=== PATIENT | female | born 1980 ===

== ENCOUNTER 2022-10-19 20:45 | Emergency (ER) | payer MEDICAID, SELFPAY ==
--- NOTE | ~2022-10-19 | US_ITS ---
EXAMINATION: US VENOUS ULTRASOUND WITH DOPPLER LOWER EXTREMITY, RIGHT CLINICAL INFORMATION: Pain COMPARISON: None available. TECHNIQUE: Ultrasound of the deep veins is performed from the hip to the calf with compression sonography and color and pulse Doppler assessment. Spectral analysis with color-flow imaging is performed. FINDINGS: There is normal venous compression and respiratory variation and augmented flow. The visualized common femoral vein, superficial femoral vein, profunda femoral vein, popliteal vein, and the trifurcation region shows no evidence of deep venous thrombosis. There is no significant popliteal fossa cyst. US/US venous duplex LE RT IMPRESSION: No DVT demonstrated in the right lower extremity.
--- NOTE | ~2022-10-19 | XR_ITS ---
EXAMINATION: XR KNEE, RIGHT CLINICAL INFORMATION: Atraumatic right knee pain. COMPARISON: None available. TECHNIQUE: Four views of the right knee. FINDINGS: Bones and soft tissues are normal. No fracture or joint effusion. Alignment is anatomic. Joint spaces are well maintained. No abnormal soft tissue calcification. XR/XR knee RT 3V IMPRESSION: Unremarkable right knee.
[2022-10-19 20:46] VITALS: BP 135/90; PULSE 100; RESP 18; TEMP 37.1; O2SAT 99; BMI 35.5
--- NOTE | 2022-10-19 21:53 | ED_ITS ---
HPI - General Adult General Chief complaint: Extremity Injury, Lower Stated complaint: right ankle pain Time Seen by Provider: 10/19/22 21:11 Source: patient, RN notes reviewed and bilingual inside sales representative Mode of arrival: ambulatory Limitations: language barrier History of Present Illness HPI narrative: 42-year-old female presents for evaluation of right knee pain. Denies any injury. Pain has been present for the last month. Her pain is to the front and back of right knee The pain radiates down the right lower extremity The patient has a history of hypothyroidism only. She denies any history of blood clots per The patient did fly to [facility] and back in August, about a month ago Related Data Previous Rx's Medication Instructions Recorded naproxen 500 mg tablet 500 mg PO BID PRN pain #20 tabs 10/19/22 Allergies Allergy/AdvReac Type Severity Reaction Status Date / Time No Known Allergies Allergy Verified 10/19/22 20:50 Review of Systems Cardiovascular: Cardiovascular: Denies chest pain and Denies dyspnea Respiratory: Respiratory: Denies cough and Denies dyspnea Gastrointestinal: Gastrointestinal: Denies abdominal pain Musculoskeletal: Musculoskeletal: Reports arthralgias, Denies joint swelling and Denies limited range of motion PMFSH Social History Social History Advance Directives: No Advance Directives Information Provided: No Physical Exam ED Vital Signs: Vital Signs - 24 hr 10/19/22 20:46 Temperature 98.7 F Pulse Rate 100 Respiratory Rate 18 Blood Pressure 135/90 H Pulse Oximetry 99 Oxygen Delivery Method Room Air BMI result Body Mass Index 35.5 Const General: healthy appearing, comfortable, no acute distress, alert and awake Nutritional Appearance: well nourished Orientation/consciousness: patient oriented x3 Skin General skin exam: no rashes or lesions noted and elasticity normal Neuro General: patient oriented x3 Cranial nerves: Yes Bilaterally intact EOM present Cognition (Neuro): normal cognition Extrem Other: Patient has tenderness to the right posterior knee. No significant edema or deformity. She has good range of motion with flexion and extension. Negative Homans sign, no calf tenderness Medical Decision Making Medical Decision Making MDM Narrative: Patient has 1 month of atraumatic right lower extremity pain. There is no significant edema. She did fly to [facility] approximately a month ago rib for the onset of her symptoms. X-ray of the right knee is unremarkable. We will obtain ultrasound of the right lower extremity to rule out DVT given the recent travel Differential Diagnosis Arthritis Knee pain Knee sprain DVT Reis cyst Radiology Impression Discussion of test interpretation with radiology: I have reviewed the radiologist's reading. (Ultrasound negative for DVT) Discharge Plan Discharge Clinical Impression: Acute pain of right knee Patient Disposition: Home, Self-Care Instructions: Knee Pain (ED) Additional Instructions: Your x-ray did not show any evidence of fracture or arthritis. Your ultrasound did not show any evidence of clot or Reis cyst. Take naproxen twice daily for your pain and follow-up with your primary doctor Prescriptions: New naproxen 500 mg tablet 500 mg PO BID PRN (Reason: pain) Qty: 20 0RF
== END 2022-10-19 22:46 | disposition home or self-care (01) ==
PROVIDERS: Emergency Provider Emergency Medicine
DX: M25.561 Pain in right knee (principal); R60.0 Localized edema
CPT/HCPCS: 73562; 93971; 99282; 99284

== ENCOUNTER 2022-12-01 12:05 | Outpatient (REF) | payer MEDICAID, SELFPAY ==
[2022-12-01 13:07] LABS: MANUAL DIFF FLAG NO
[2022-12-01 13:19] LABS: Basophils Percent Auto 0.5 % (0-2); Eosinophils Absolute Auto 0.2 X10*3/uL (0.0-0.4); Eosinophils Percent Auto 2.5 % (0-4); Hematocrit 44.1 % (37.0-47.0); Hemoglobin 14.7 g/dl (12.0-16.0); Imm Gran Abs Auto 0.06 X10*3/uL (0.00-0.03); Imm Gran Pct Auto 0.9 % (0.0-0.4); Lymphocytes Absolute Auto 3.2 X10*3/uL (1.2-4.9); Lymphocytes Percent Auto 48.5 % (20-40); Mean Corpuscular HGB Conc 33.3 g/dl (31.0-35.0); Mean Corpuscular Hemoglobin 30.1 pg (27.0-33.0); Mean Corpuscular Volume 90.4 fL (80.0-98.0); Mean Platelet Volume 9.7 fL (9.4-12.3); Monocytes Absolute Auto 0.5 X10*3/uL (0.1-1.2); Monocytes Percent Auto 6.9 % (2-11); Neutrophils Absolute Auto 2.7 x10*3/uL (2.0-8.3); Neutrophils Percent Auto 40.7 % (45-73); Platelet Count 289 X10*3/uL (160-400); Red Blood Count 4.88 X10*6/uL (4.20-5.50); Red Cell Distribution Width 13.1 % (11.0-16.0); White Blood Count 6.5 X10*3/uL (4.8-10.8)
[2022-12-01 13:38] LABS: Estimated Average Glucose 123 mg/dL; Hemoglobin A1c % 5.9 %
[2022-12-01 14:03] LABS: Erythrocyte Sedimentation Rate 5 MM/HR (0-20)
[2022-12-01 14:10] LABS: Alanine Aminotransferase 118 U/L (0-31); Albumin Level 4.3 g/dL (3.5-5.0); Alkaline Phosphatase 69 U/L (39-117); Anion Gap 12 (12-20); Aspartate Amino Transferase 104 U/L (5-31); Bilirubin Total 0.8 mg/dL (0.0-1.0); Blood Urea Nitrogen 8 mg/dL (9-16); C Reactive Protein 0.31 mg/dL (< or = 0.50); Calcium 9.2 mg/dL (8.4-10.2); Carbon Dioxide 23 mmol/L (22-29); Chloride 107 mmol/L (96-108); Cholesterol 136 mg/dL; Estimated Glomerular Filt Rate > 60; Glucose Random 90 mg/dL (60-115); HDL Cholesterol 44 mg/dL; LDL Cholesterol Calculated 69 mg/dl; Potassium 3.7 mmol/L (3.3-5.1); Sodium 138 mmol/L (135-145); Total Protein 7.6 g/dL (6.5-8.0); Triglycerides 117 mg/dL; Uric Acid 5.5 mg/dL (2.4-5.7)
[2022-12-01 14:13] LABS: Rheumatoid Factor < 13.0 IU/mL (<15.0)
[2022-12-01 14:27] LABS: Free T4 (Free Thyroxine) 0.63 ng/dL (0.71-1.85); Thyroid Stimulating Hormone 16.38 uIU/mL (0.32-4.0)
[2022-12-01 16:41] LABS: CT PCR NOT DETECTED (Not Detect.); NG PCR NOT DETECTED (Not Detect.)
[2022-12-02 02:25] LABS: Syphilis Screen Nonreactive (Nonreactive)
[2022-12-02 03:11] LABS: ~HepC Num1 0.19 S/CO (0.00-0.79); ~Hepatitis C Antibody Nonreactive (Nonreactive)
[2022-12-02 03:12] LABS: HBS Num1 0.33 mIU/mL (0-7.99); HBc Num1 0.12 S/CO (0.00-0.79); HIV AB/AG Nonreactive (Nonreactive); HIV Num 1 0.05 S/CO (0.00-0.99); Hepatitis B Core Antibody Nonreactive (Nonreactive); Hepatitis B Surface Antigen Negative (Negative); ~Hepatitis B Surface Antibody NONREACTIVE (Nonreactive)
[2022-12-04 14:08] LABS: Cyclic Citrullinated Peptide <16 UNITS
[2022-12-06 14:32] LABS: Anti Nuclear Antibody Screen NEGATIVE (NEGATIVE)
[2022-12-08 07:33] LABS: VITAMIN D (1,25 OH) D3 54 pg/mL; Vit D (1,25-Dihydroxy) Total 54 pg/mL (18-72); Vitamin D (1,25 OH) D2 <8 pg/mL
== END 2022-12-01 12:06 | disposition home or self-care (01) ==
LOC: HO.HHCL 12:05
PROVIDERS: Visit Provider Student in an Organized Health Care Education/Training Program
DX: Z00.00 Encounter for general adult medical examination without abnormal findings (principal); Z11.4 Encounter for screening for human immunodeficiency virus [HIV]; M25.561 Pain in right knee; M25.562 Pain in left knee
CPT/HCPCS: 0353U; 80053; 80061; 82652; 83036; 84436; 84439; 84443; 84550; 85025; 85652; 86038; 86140; 86200; 86431; 86704; 86706; 86780; 86803; 87340; 87389

== ENCOUNTER 2023-02-02 09:27 | Outpatient (REF) | payer MEDICAID, SELFPAY ==
--- NOTE | ~2023-02-02 | MM_ITS ---
EXAMINATION: MM SCREENING DIGITAL BREAST TOMOSYNTHESIS, BILATERAL CLINICAL INFORMATION: Screening. Asymptomatic. COMPARISON: Mammography: This is a baseline study. TECHNIQUE: Digital breast tomosynthesis is performed in both the craniocaudal and mediolateral oblique views along with computer-aided detection (CAD). Synthesized 2D images are generated from the tomosynthesis. FINDINGS: There are scattered areas of fibroglandular density (ACR BI-RADS breast composition Category b). There are no significant masses, abnormal calcifications, or other abnormalities. MM/MM tomosynthesis screening BI IMPRESSION: No mammographic evidence of malignancy. ASSESSMENT: BI-RADS BI-RADS 1 - Negative RECOMMENDATION: Routine annual mammography screening. 1 year F/U This examination should not preclude the clinical evaluation of a suspicious palpable abnormality. This patient's information was entered into a reminder system with a target due date for their next mammogram.
== END 2023-02-02 09:28 | disposition home or self-care (01) ==
LOC: HO.MAMMO 09:27
PROVIDERS: PCP Student in an Organized Health Care Education/Training Program; Visit Provider Student in an Organized Health Care Education/Training Program
DX: Z12.31 Encounter for screening mammogram for malignant neoplasm of breast (principal)
CPT/HCPCS: 77063; 77067

== ENCOUNTER → 2023-02-02 09:45 | Outpatient (BNV) | payer MEDICAID, SELFPAY | PROVIDERS: PCP Student in an Organized Health Care Education/Training Program; Visit Provider Radiology Diagnostic Radiology | DX: Z12.31 Encounter for screening mammogram for malignant neoplasm of breast (principal) | CPT/HCPCS: 77063; 77067 ==

== ENCOUNTER 2023-05-06 | Outpatient (REF) | payer MEDICAID, SELFPAY ==
[2023-05-14 03:48] LABS: HPV mRNA E6/E7 rflx Not Detected (Not Detected)
== END 2023-05-06 00:01 ==
LOC: HO.HHCLNP
PROVIDERS: Visit Provider Advanced Practice Midwife
DX: Z12.4 Encounter for screening for malignant neoplasm of cervix (principal); Z11.51 Encounter for screening for human papillomavirus (HPV)
CPT/HCPCS: 87624; 88142

== ENCOUNTER 2023-12-08 19:46 | Outpatient (REF) | payer MEDICAID, SELFPAY | END 2023-12-08 19:47 | disposition home or self-care (01) | LOC: HO.HHCLNP 19:46 | PROVIDERS: Visit Provider Registered Nurse | DX: L03.031 Cellulitis of right toe (principal) | CPT/HCPCS: 87070; 87077; 87186; 87205 ==

== ENCOUNTER 2024-08-29 19:00 | Outpatient (REF) | payer SELFPAY ==
--- OUTSIDE RECORDS SUMMARY | 2024-08-29 19:29 | XMS_ITS | Clinical Summary ---
Author Organization [employer] Address [address] [place] [address] [address] [place] [address] Care Team Providers Care Quality Improvement Engineer Name Role Phone Caroline Dumas MD Primary Care Pro vider Allergies No known active allergies Medications * This document contains information received from the source organization and may not represent a complete record from that organization. lidocaine (Lidoderm) 5 % patch Apply 1 patch topically in the morning. Remove & discard patch within 12 hours or as directed by MD. 30 patch 12/30/19 23 Active levothyroxine (Tirosint) 125 MCG capsuleIndication s:Other specified hypothyroidism TAKE 1 CAPSULE BY MOUTH BEFORE BREAKFAST 90 capsule 08/18/19 24 Active sertraline (Zoloft) 25 MG tabletIndications :PTSD (post-traumatic stress disorder) Take 1 tablet (25 mg) by mouth in the morning. 30 tablet 1 08/29/19 25 2024 Active hydrOXYzine pamoate (Vistaril) 50 MG capsuleIndication s:PTSD (post-traumatic stress disorder) Take 1 capsule (50 mg) by mouth if needed in the morning and at bedtime for anxiety. 30 capsule 1 08/29/19 25 2024 Active cefadroxil (Duricef) 500 MG capsuleIndication s:Paronychia of great toe of right foot Take 1 capsule BID for 5d, take w/ food 10 capsule 08/30/19 25 2024 Active doxycycline (Vibra-Tabs) 100 MG tabletIndications :Paronychia of great toe of right foot Take 1 tablet (100 mg) by mouth 2 times daily for 7 days. Take with food and a full glass of water and do not lie down for at least 30 minutes after. 14 tablet 08/30/19 25 2024 Active hydrOXYzine pamoate (Vistaril) 50 MG capsule Take 1 capsule (50 mg) by mouth every 8 (eight) hours if needed for anxiety. 30 capsule 05/08/20 24 2024 Discontinued(R eorder (will not trigger notification to Pharmacy)) sertraline (Zoloft) 25 MG tabletIndications :PTSD (post-traumatic stress disorder) Take 1 tablet (25 mg) by mouth in the morning. 30 tablet 1 05/23/20 24 2024 Discontinued(R eorder (will not trigger notification to Pharmacy)) Active Problems Problem Noted Date Diagnosed Date Adjustment disorder with mixed anxiety and depre ssed mood 05/08/2024 Elevated LFTs 12/29/2022 Assessment & Plan (12/29/2022 12:44 PM EDT): 11/2022 AST 104,ALT 118 Pt denies excessive ETOH, tylenol nor NSAID use,states only sporadic . Not taking oral contraceptives ( does has IUD ) , denies herbal products Pt w obesity possible from fatty liver -advised pt for weight loss changes -referred to [employer]point [employer] architect already -ordered today chem to be done in 3 weeks -I will call pt w results, if worsen will refer x abd US ,if improving will monitor again in 3 months -advised to avoid excess of tylenol,NSAIDs and avoid ETOH Prediabetes 12/29/2022 Assessment & Plan (12/29/2022 12:49 PM EDT): 11/2022 Hb1AC 5.9 -life style changes advised -referred to sharepoint solutions architect -will repeat hb1AC in 3 mo -if still elevated will discuss about starting metformin -holding for now w elevated LFTs Carpal tunnel syndrome 12/01/2022 Assessment & Plan (12/29/2022 12:30 PM EDT): Pt w bl CTs symptoms w numbness in 1st 3 digits in am + phalen and tinnel test w no atrophy of muscles noted at previous visit Possible mx factorial from uncontrolled hypothyroidism and obesity -gave already written prescription of wrist brace x both hands -advised to wear them every night -pt to get prescription -will monitor at next visit in 3 months if no improvement will refer to hand surgeon Assessment & Plan (12/01/2022 1:46 PM EDT): Pt w bl CTs symptoms w numbness in 1st 3 digits in am + phalen and tinnel test w no atrophy of muscles noted -gave today written prescription of wrist brace x both hands -advised to wear them every night -will monitor at next visit Pain in both knees 12/01/2022 Assessment & Plan (12/29/2022 12:36 PM EDT): Reports having bl knee pain x last 5 months R>L ,denies having any joint swelling,increase skin temp nor erythema -right knee XR 09/2022 : unremarkable -Right LE US 09/2022 : Neg x DVT nor Reis cyst -lidocaine patches daily prn -states this is helping -prescribed today diclofenac topical -advised to try w tylenol prn and if ongoing discomfort meloxicam 1 or up to 2 tab daily for moderate pain ( states not taking tablets to often ) ,advised to try topical meds 11/2022 LISSETTE,antiCCP, RF are neg and ,CPR,ESR,uric acid all wnl -referred to PT -has apt to start tx this week -if at next visit pt w ongoing pain will consider x MRI right knee and ortho referral--advised pt to call here if after completes PT and before next visit if there is no improvement of knee pain so I can do earlier referral for image and orthopedic Assessment & Plan (12/01/2022 1:51 PM EDT): Reports having bl knee pain x last 3 to 4 months R>L ,denies having any joint swelling,increase skin temp nor erythema , went to ER on 10/19/2022 , naproxen 500 mg BID w improvement but now run off and having pain again ,described as intense. Denies other joints affected but having am rigidity in hands bl lasting < 10 min. -right knee XR 09/2022 : unremarkable -Right LE US 09/2022 : Neg x DVT nor Reis cyst -advised to try w tylenol prn and if ongoing discomfort meloxicam 1 or up to 2 tab daily for moderate pain -lidocaine patches -referred to PT today -will do autoimmune panel x am rigidity -if at next visit pt w ongoing pain will consider x MRI right knee and ortho referral Health care maintenance 12/01/2022 Assessment & Plan (12/29/2022 12:52 PM EDT): -per pt had neg Tb test before -pap smear: 2 y ago neg per pt but unsure ---referred already to [facility] to repeat test ,has apt this month -contraception: has IUD -Mirena thinks x last 5 years -will check w J R. If needs to changed or keep for another couple of years. -MM: never-referred already -has apt this mon -vaccines: s/p MMRx2,Covid 18t7-Axsgbqmj dosex1, tdap 11/2022, Hep B not immune- to start series ------ -labs done x annual exam 12/01/2022 to be scanned in system not seen in Epic lab tab 11/2022 immature granulocytes absolute number 0.06 slight elevated ,rest of CBC is wnl -will repeat CBC in 3 mo to monitor Assessment & Plan (12/01/2022 2:17 PM EDT): -per pt had neg Tb test before -pap smear: 2 y ago neg per pt but unsure ---referred today to [facility] Marti to repeat test -contraception: has IUD -Mirena thinks x last 5 years -will check w J R. If needs to changed or keep for another couple of years. -MM: never-referred today -vaccines: s/p MMRx2,Covid 19o6-itygm Bivalent dose, tdap 2011 today tdap -- -PHQ9 2 today-denies depression,reports fatigue likely associated since stopped taking levothyroxine x couple of months-to resume today Class 2 obesity due to exces s calories without serious comorbidity with body mass index (BMI) of 36.0 to 36.9 in adult 12/01/2022 Assessment & Plan (12/29/2022 12:40 PM EDT): Advised pt to improve diet and exercise,discussed healthy life style -lost 4 pounds in last month -prob after resumed levothyroxine -discussed sharepoint solutions architect referral -referred already-gave today info of letter from sharepoint solutions architect for pt to call to schedule apt -monitor weight in 3 mo ,if no important weight loss may discuss w pt about bariatric surgery referral ? Assessment & Plan (12/01/2022 2:18 PM EDT): Advised pt to improve diet and exercise,discussed healthy life style -discussed sharepoint solutions architect referral -referred today Other specified hypothyroidism 07/22/2022 Assessment & Plan (12/29/2022 12:39 PM EDT): Hypothyroidism Now reports to be complaint w medication for the past 3 weeks 12/01/2022 TSH 16.38, total T4 wnl, free T4 low ( 0.63)--at the time of labs was off meds x 3 months -advised to continue levothyroxine daily -will repeat TFT in next 3 weeks -ordered today --I will call pt w lab results Assessment & Plan (12/01/2022 1:47 PM EDT): Hypothyroidism -not taking med x last 3 months after taking 4 years , x no particular reason. -advised to resume today levothyroxine -will do TFT x baseline but will no change in dose given off x 3 months of meds -will repeat TFT in next 6 weeks -will order labs at next apt Encounters * This document contains information received from the source organization and may not represent a complete record from that organization. Date Type Department Care Team Description 08/29/2024 2:20 PM EDT Office Visit [facility] [address] [place] [phone] Vidya Stuart ANP Paronychia of great toe of right foot (Primary Dx); Dietary counseling; Exercise counseling 08/14/2024 Telephone [facility] [address] [place] [phone] Caroline Dumas MD Nurse Triage 06/26/2024 Telephone [facility] [address] [place] [phone] Caroline Dumas MD Nurse Triage from Last 3 Months Immunizations Name Administration Dates Next Due Influenza injectable quadriv alent IIV4 with preservative 04/04/2018,06/11/2017,09/14/2016,2014 Influenza, IIV3, injectable 02/08/2014, 2 MMR 02/16/2005,01/01/2003 Moderna Covid-19 Vaccine 12+ 11/30/2020,11/03/19 21 Pfizer Covid-19 Vaccine 12+ Bivalent 12/01/2022 Tdap 12/01/2022,12/03/2011 Family History Medical History Relation Name Comments DM2 Mother Relation Name Status Comments Mother Social History Tobacco Use Types Packs/Day Years Used Date Smoking Tobacco: Never Smokeless Tobacco: Never Tobacco Cessation:Counseling Given: Not Answered Alcohol Use Standard Drinks/Week Comments Not Currently 0 (1 standard drink = 0.6 oz pur e alcohol) Depression Answer Date Recorded Patient Health Questionnaire-9 Score 7 05/08/2024 Patient Health Questionnaire-9 Score 7 05/08/2024 Last PHQ-9: Questionnaire Data Not on file 1 07/09/2023 Housing Stability Answer Date Recorded What is your housing situation today? I have tunde dev 03/29/[address] you li ve. Do you have problems with any of the following? None of the above 03/29/2023 Food Insecurity Answer Date Recorded Within the past 12 months, y ou worried that your food would run out before you got money to buy more: Never True 03/29/2023 Within the past 12 months,th e food you bought just didn't last and you didn't have enough money to get more: Never True 10/2022 Transportation Answer Date Recorded In the past 12 months, has l ack of transportation kept you from medical appts, meetings, work or from getting things needed for daily living? No 03/29/2023 Utilities Answer Date Recorded In the past 12 months, has t he electric, gas, oil or water company threatened to shut off services in your home? No 03/29/2023 Depression Answer Date Recorded Patient Health Questionnaire-2 Score 2 05/08/2024 Comments No Sex and Gender Information Value Date Recorded Sex Assigned at Female 08/17/2022 1:40 PM EDT Legal Sex Female 10:38 AM EDT Gender Identity Female 03/23/2022 10:38 AM EDT Sexual Orientation Straight 03/23/2022 10 :38 AM EDT Last Filed Vital Signs Vital Sign Reading Time Taken Comments Blood Pressure 122/82 08/29/2024 2:07 PM EDT Pulse 84 08/29/2024 2:07 PM EDT Temperature 36.5 ??C (97.7 ??F) 08/29/2024 2:07 PM ED T Respiratory Rate 17 08/29/2024 2:07 PM EDT Oxygen Saturation 99% 08/29/2024 2:07 PM EDT Inhaled Oxygen Concentration - - Weight 76.7 kg (169 lb 3.2 oz) 08/29/2024 2:07 P M EDT Height 152.4 cm (5') 12/08/2023 4:55 PM EDT Body Mass Index 33.04 12/08/2023 4:55 PM EDT Plan of Treatment Health Maintenance Due Date Last Done Comments Alcohol/Substance Use Screening 1993 Family Planning (PISQ) 02/15/1996 Hepatitis B Vaccines (1 of 3 - 19+ 3-dose series) 02/15/2000 Diabetes: Hemoglobin A1C 07/29/2022 07/29/2021 SDOH Screening 11/24/2023 11/23/2022 COVID-19 Vaccine ( season) 2024 12/01/2022, 11/30/2020, 11/02/2020 Influenza Vaccine (#1) 2024 8, 06/11/2017, 09/14/2016, Additional history exists Mammogram 02/02/2025 02/02/2023 Depression Screening 05/08/2025 05/08/2024, 05/08/20 24 Tobacco Screening 08/29/2025 08/29/2024 Pap Smear 05/06/2026 05/06/2023 Lipid Panel 07/29/2026 07/29/2021 Cervical Cancer Screening 05/06/2028 HPV/Cotest 05/06/2028 05/06/2023 Zoster Vaccines (1 of 2) 2031 DTaP/Tdap/Td Vaccines (3 - Td or Tdap) 12/01/2032 12/01/2022, 12/03/2011 RSV Patients and Patients Aged 60 years or older (1 - 1-dose 75+ series) 02/15/2056 HIV Screening Completed 07/29/2021 Hepatitis C Screening Completed 07/29/2021 HIB Vaccines Aged Out No longer eligi ble based on patient's age to complete this topic HPV Vaccines Aged Out No longer eligi ble based on patient's age to complete this topic Hepatitis A Vaccines Aged Out No long er eligible based on patient's age to complete this topic IPV Vaccines Aged Out No longer eligi ble based on patient's age to complete this topic Meningococcal Vaccine Aged Out No abigail jessica eligible based on patient's age to complete this topic Pneumococcal Vaccine: Pediatrics (0 to 5 Years) and At-Risk Patients (6 to 49) Years) Aged Out No longer eligible based on patient's age to complete this topic RSV under 20 months Aged Out No longe r eligible based on patient's age to complete this topic Rotavirus Vaccines Aged Out No longer eligible based on patient's age to complete this topic Procedures Procedure Name Priority Date/Time Associated Diagnosis Comments HPV MRNA E6/E7 REFLEX TO HPV 16, 18/45 Routine 05/06/2023 11:08 AM EST PAP SMEAR Routine 05/06/2023 11:08 AM EST Cervical cancer screening BI MAMMOGRAM SCREENING TOMOSYNTHESIS BILATERAL Routine 02/02/2023 10:00 AM EDT ZZZ HISTORICAL HEPATITIS C AB W/REFL TO HCV RNA, QN, PCR Routine 07/29/2021 8:56 AM EST HIV 1/2 ANTIGEN/ANTIBODY, FOURTH GENERATION W/RFL Routine 07/29/2021 8:56 AM EST HEMOGLOBIN A1C Routine 07/29/2021 8:56 AM EST LIPID PANEL, STANDARD Routine 07/29/2021 8:56 AM EST from Last 3 Months or Most Recently Relevant to Health Maintenance Results * HPV mRNA E6/E7 w/Reflex to HPV Genotypes 16, 18/45 (05/06/2023 11:08 AM EST) HPV nRNA E6/E7 Not Detected Not Detected [facility] Comment:Methodology: Transcr iption-Mediated AmplificationThis assay detects E6/E7 viral messenger RNA (mRNA) from 14high-risk HPV types (16,18,31,33,35,39,45,51,52,56,58,59,66,68).Cervical sources are required for HPV testing.If a vaginal source from a patient who has had atotal hysterectomy with removal of cervix wassubmitted, please contact the testing laboratoryfor alternative testing options.For additional information, please refer tohttp://education.[employer]/faq/VXV346c8(This link if provided for information/educational purposes only.)THIS TEST WAS PERFORMED AT:[facility] [place] [phone] LEE MD HPV mRNA E6/E7 [facility] HPV 16 RNA [facility] HPV 18/45 RNA [facility] 05/06/2023 11:0 8 AM EST 05/07/2023 9:35 AM EST Jai Church [facility] CYTOLOGY ORDERABLES F inal Result [facility] [address] [place] [phone] * Pap Smear (05/06/2023 11:08 AM EST) Swab Cervix uteri structure / Unknown 05/06/2023 11:08 AM EST 05/07/2023 9:35 AM EST Narrative [facility] - 05/18/2023 1:23 PM EST ----- ------- Name: Mirian De La Fuente ?Age/Sex: 43/F ? : 1980 Unit#: [id number] ?? Attend Dr: ?Re05/06/23 ?Status: PRE REF ? Location: HO.LNP ?Disch: ? ----- ------- SPEC : [id number] ?RECD: 05/07/23 ? STATUS: ??SOUT ? REQ NUM: [id number] ? OMARI: 05/06/23-1107 ? SUBM DR: JAI CHURCH CNM ? ENTERED: ??05/07/23-1200 ?SP TYPE: Pap Smr ?OTHR DR: ? ORDERED: ??Pap Smear ? Interpretation ?? Satisfactory for evaluation. ?? No endocervical cells seen. ?? Moderate inflammation. ?? Negative for intraepithelial lesion or malignancy. ?HPV mRNA E6/E7: ?NOT DETECTED ? This assay detects E6/E7 viral messenger RNA (mRNA) from 14 high-risk HPV types (16, 18, ?? 31, 33, 35, 39, 45, 51, 52, 56, 58, 59, 66, 68) ?? HPV testing performed by [facility], [place], [place]. ??See reference laboratory ?? portion of the EMR for entire report. ?Clinical Information LMP: Unknown date Previous PAP test: Unknown date/findings ? Material Received ?? ThinPrep-Cervical ----- ------- Signed (signature on file) BARBARA Lezama (ASCP) 05/18/23 1323 ? ----- ------- ? END OF REPORT ? us Jai Church CNM LAB CYTOLOGY ORDERABLES F inal Result [facility] [address] [place] [phone] * BI Mammogram Screening Tomosynthesis Bilateral (02/02/2023 10:00 AM EDT) Anatomical Region Laterality Modality Breast Bilateral Mammography 02/02/2023 10:0 0 AM EDT Narrative 02/18/2023 11:19 AM EDT ? [facility] ? [address] ?[place] [phone] ? Mammography Report ? Signed ? Patient: Osmin,Mirian ?MR#: [id number] ?? 41 ? : 1980 ?Acct:[id number] ? Age/Sex: 42 / F ?ADM Date: 02/02/23 ? Loc: HO.MAMMO ? Attending Dr: Caroline Mcneil MD ? Ordering Physician: Caroline Dumas MD ?Re ?? sults: 1Negative ? Date of Service: 02/02/23 ?Follow Up: 1 Year From Orig ?? inal Mammogram ? Procedure(s): MM tomosynthesis screening BI ?? Accession Number(s): [id number] ? cc: Caroline Dumas MD ? EXAMINATION: ?? MM SCREENING DIGITAL BREAST TOMOSYNTHESIS, BILATERAL ? CLINICAL INFORMATION: ? Screening. Asymptomatic. ? COMPARISON: ?? Mammography: This is a baseline study. ? TECHNIQUE: ?? Digital breast tomosynthesis is performed in both the craniocaudal and ?? mediolateral oblique views along with computer-aided detection (CAD). ?? Synthesized 2D images are generated from the tomosynthesis. ? FINDINGS: ?? There are scattered areas of fibroglandular density (ACR BI-RADS breast ?? composition Category b). ? There are no significant masses, abnormal calcifications, or other ?? abnormalities. ? MM/MM tomosynthesis screening BI ?? IMPRESSION: ?? No mammographic evidence of malignancy. ? ASSESSMENT: ? BI-RADS BI-RADS 1 - Negative ? RECOMMENDATION: ?? Routine annual mammography screening. ? 1 year F/U ? This examination should not preclude the clinical evaluation of a ?? suspicious palpable abnormality. ? This patient's information was entered into a reminder system with a ?? target due date for their next mammogram. ? Dictated By: ?Svetlana Abarca MD ? Signed By: ?<Electronically signed by Svetlana Abarca MD in OV> ? 02/18/23 1115 ? DD/ 1000 ? TD/TT: ? Helpdesk Manager: ? Procedure Note Hasmukh, Image - 02/18/2023 [facility] [address] [place] [address] [place] [address] Mammography Report Signed Patient: Alan Solorio#: [id number] 41 : 1980Acct:[id number] Age/Sex: 42 / FADM Date: 02/02/23 Loc: [facility] Attending Dr: Caroline Mcneil MD Ordering Physician: Caroline Dumas sults: 1Negative Date of Service: 02/02/23Follow Up: 1 Year From Orig inal Mammogram Procedure(s): MM tomosynthesis screening BI Accession Number(s): [id number] cc: Caroline Dumas MD EXAMINATION: MM SCREENING DIGITAL BREAST TOMOSYNTHESIS, BILATERAL CLINICAL INFORMATION: Screening. Asymptomatic. COMPARISON: Mammography: This is a baseline study. TECHNIQUE: Digital breast tomosynthesis is performed in both the craniocaudal and mediolateral oblique views along with computer-aided detection (CAD). Synthesized 2D images are generated from the tomosynthesis. FINDINGS: There are scattered areas of fibroglandular density (ACR BI-RADS breast composition Category b). There are no significant masses, abnormal calcifications, or other abnormalities. MM/MM tomosynthesis screening BI IMPRESSION: No mammographic evidence of malignancy. ASSESSMENT: BI-RADS BI-RADS 1 - Negative RECOMMENDATION: Routine annual mammography screening. 1 year F/U This examination should not preclude the clinical evaluation of a suspicious palpable abnormality. This patient's information was entered into a reminder system with a target due date for their next mammogram. Dictated By: Svetlana Abarca MD Signed By: <Electronically signed by Svetlana Abarca MD in OV> 02/18/23 1115 DD/ 1000 TD/TT: Helpdesk Manager: Caroline Mcneil MD IMG BI PROCEDURES Final Result * HEPATITIS C AB W/REFL TO HCV RNA, QN, PCR (07/29/2021 8:56 AM EST) HEPATITIS C ANTIBODY NON-REACT SALOMON NON-REACT SALOMON [facility] INDEX 0.12 <1.00 [facility] Comment: ?? HCV antibody was non-reactive. There is no laboratory ?? evidence of HCV infection. ?? In most cases, no further action is required. However, if recent HCV exposure is suspected, a test for HCV RNA (test code 83270) is suggested. ?? For additional information please refer to http://education.[employer]/faq/RLF71u2 (This link is being provided for informational/ educational purposes only.) ?? 07/29/2021 8:56 AM EST us Divina Asif MD HISTORICAL/NON ORDERABLE LABS Final Result Performing Organization Address [facility] de Phone Number [facility] [address] [place] [address], * HIV 1/2 ANTIGEN/ANTIBODY,FOURTH GENERATION W/RFL (07/29/2021 8:56 AM EST) HIV-1/2 ANTIGEN AND ANTIBODIES, 4TH GENERATION W/ REFLEX NON-REACT SALOMON NON-REACT SALOMON [facility] Comment: HIV-1 antigen and HIV-1/HIV-2 antibodies were not detected. There is no laboratory evidence of HIV infection. ?? PLEASE NOTE: This information has been disclosed to you from records whose confidentiality may be protected by state law. ??If your state requires such protection, then the state law prohibits you from making any further disclosure of the information without the specific written consent of the person to whom it pertains, or as otherwise permitted by law. A general authorization for the release of medical or other information is NOT sufficient for this purpose. ? For additional information please refer to http://education.[employer]/faq/UYC258 (This link is being provided for informational/ educational purposes only.) ? The performance of this assay has not been clinically validated in patients less than 2 years old. ?? 07/29/2021 8:56 AM EST Divina Asif MD LAB BLOOD ORDERABLES Final Re sult Performing Organization Address [facility] Phone Number [facility] [address] [place] [address], * (ABNORMAL) HEMOGLOBIN A1c (07/29/2021 8:56 AM EST) Hemoglobin A1c 5.9(H) <5.7 % of total Hgb [facility] Comment: For someone without known diabetes, a hemoglobin ?? A1c value between 5.7% and 6.4% is consistent with prediabetes and should be confirmed with a ?? follow-up test. ?? For someone with known diabetes, a value <7% indicates that their diabetes is well controlled. A1c targets should be individualized based on duration of diabetes, age, comorbid conditions, and other considerations. ?? This assay result is consistent with an increased risk of diabetes. ?? Currently, no consensus exists regarding use of hemoglobin A1c for diagnosis of diabetes for children. ?? 07/29/2021 8:56 AM EST us Divina Asif MD LAB BLOOD ORDERABLES Final Re sult Performing Organization Address [facility] de Phone Number [facility] [address] * LIPID PANEL, STANDARD (07/29/2021 8:56 AM EST) Chol/HDLC Ratio 2.8 <5.0 (calc) [facility] Cholesterol, Total 119 <200 mg/dL [facility] HDL Cholesterol 43 > OR = 40 mg/dL [facility] LDL Cholesterol 59 mg/dL (calc) [facility] Comment: Reference range: <100 ?? Desirable range <100 mg/dL for primary prevention; ?? <70 mg/dL for patients with CHD or diabetic patients ?? with > or = 2 CHD risk factors. ?? LDL-C is now calculated using the Sacha-Brock ?? calculation, which is a validated novel method providing ?? better accuracy than the Friedewald equation in the ?? estimation of LDL-C. ?? Sacha ENNIS et al. JESSICA. 2013;310(19): 9828-1281 ?? (http://education.[employer]/faq/STH519) Non-HDL Cholesterol 76 <130 mg/dL (calc) [facility] Comment: For patients with diabetes plus 1 major ASCVD risk ?? factor, treating to a non-HDL-C goal of <100 mg/dL ?? (LDL-C of <70 mg/dL) is considered a therapeutic ?? option. Triglycerides 86 <150 mg/dL FOUND [facility]COUNT INCLUDES THE [facility] 07/29/2021 8:56 AM EST us Divina Asif MD LAB BLOOD ORDERABLES Final Re sult Performing Organization Address [facility] Co de Phone Number [facility] [address] from Last 3 Months or Most Recently Relevant to Health Maintenance Insurance [employer] PPO Care Teams Quality Improvement Engineer Relationship Specialty Start Date End Date Caroline Dumas MD [address] [place] [id number] PCP - General Internal Medicine 12/01/22
--- OUTSIDE RECORDS SUMMARY | 2024-08-29 19:30 | XMS_ITS | Encounter Summary ---
Author Organization [employer] Address [address] [place] [address] 7 [place] [address] Care Team Providers Care Show Host Name Role Phone Caroline Dumas MD Primary Care Pro vider Reason for Referral * Consultation (Urgent) - Pending Review Specialty Diagnoses / Procedures Referred By Chuy parekh Referred To Contact Podiatry Diagnoses Paronychia of great toe of right foot Vidya Stuart ANP [address] [place] [address] Phone: tel: fax: Referral ID Status Reason Start Date Expiration Date Visits Requested Visits Authorized [id number] Pending Review Specialty Services Required 08/29/2024 08/29/2025 1 1 Reason for Visit * Reason Comments Nail Problem Allergies Encounter Details Date Type Department Care Team (Late st Contact Info) Description 08/29/2024 2:20 PM EDT Office Visit [facility] [address] [place] [phone] Vidya Stuart ANP [address] [place] [phone] Paronychia of great toe of right foot (Primary Dx); Dietary counseling; Exercise counseling Social History Tobacco Use Types Packs/Day Years Used Date Smoking Tobacco: Never Smokeless Tobacco: Never Alcohol Use Standard Drinks/Week Comments Not Currently 0 (1 standard drink = 0.6 oz pur e alcohol) Depression Answer Date Recorded Patient Health Questionnaire-9 Score 7 05/08/2024 Patient Health Questionnaire-9 Score 7 05/08/2024 Last PHQ-9: Questionnaire Data Not on file 1 07/09/2023 Housing Stability Answer Date Recorded What is your housing situation today? I have tunde méndez 03/29/[address] you li [...] Orientation Straight 03/23/2022 10 :38 AM EDT documented as of this encounter Last Filed Vital Signs Vital Sign Reading [...] oz) 08/29/2024 2:07 P M EDT Height - - Body Mass Index 33.04 12/08/2023 4:55 PM EDT documented in this encounter Progress Notes * REG Mon - 08/29/2024 2:20 PM EDT Subjective Patient ID: Mirian Solorio is a 44 y.o. female who presents for Nail Problem and Allergies. HPI PMH preDM, CTS, hypothyroid, elevated LFTs Per triage Reports having an ingrown nail on great big toe. Per pt having redness, pus around cuticle and under nail. No fever. Pt states having severe pain. Pt states was seen for this in past and was supposed to be referred to podiatry but due to insurance unable to follow up. Pain and swelling present in R great toe for 3 weeks. Dropped some boxed on toe 4 weeks ago. Has been doing some warm soaks. Non-smoker Douglas NGUYEN provided Bengali interpretation. Review of Systems Constitutional: Negative for chills and fever. HENT: Negative for sore throat. Respiratory: Negative for cough and shortness of breath. Cardiovascular: Negative for chest pain. Gastrointestinal: Negative for constipation and diarrhea. Endocrine: Negative for polydipsia, polyphagia and polyuria. Genitourinary: Negative for dysuria. Skin: Positive for color change. Negative for rash. +swelling, erythema at medial nail fold R great toe Objective BP 122/82 (BP Location: Left arm, Patient Position: Sitting, BP Cuff Size: Adult) Pulse84 Temp 97.7 ??F (36.5 ??C) (Temporal) Resp 17 Wt 169 lb 3.2 oz (76.7 kg) SpO2 99% BMI 33.04 kg/m?? Physical Exam Constitutional: Appearance: Normal appearance. Cardiovascular: Rate and Rhythm: Normal rate. Musculoskeletal: Right lower leg: No edema. Left lower leg: No edema. Comments: Medial nail fold great toe on R foot erythematous, swollen, with purulent discharge spontaneously draining and expressed from near cuticle. Skin: General: Skin is warm and dry. Neurological: Mental Status: She is alert. Assessment/Plan Diagnoses and all orders for this visit: Paronychia of great toe of right foot Draining spontaneously, recommend warm soaks TID, urgent referral to podiatry, cefadroxil plus doxy. Call us if not improving or if worsening sx. - Wound culture; Future - Referral to Podiatry; Future - cefadroxil (Duricef) 500 MG capsule; Take 1 capsule BID for 5d, take w/ food - doxycycline (Vibra-Tabs) 100 MG tablet; Take 1 tablet (100 mg) by mouth 2 times daily for 7 days.Take with food and a full glass of water and do not lie down for at least 30 minutes after. Dietary counseling Exercise counseling documented in this encounter Plan of Treatment Scheduled Orders Name Type Priority Associated Diagnoses Orde r Schedule Wound culture Microbiology Routine Paronychia of great toe of right foot Expected: 08/29/2024 (Approximate), Expires: 08/29/2025 Scheduled Referrals Name Type Priority Associated Diagnoses Orde r Schedule Referral to Podiatry Outpatient Referral Urgent Paronychia of great toe of right foot Expected: 08/29/2024 (Approximate), Expires: 08/29/2025 documented as of this encounter Visit Diagnoses Diagnosis Paronychia of great toe of right foot- Primary Dietary counseling Dietary surveillance and counseling Exercise counseling documented in this encounter Additional Health Concerns Assessment Noted Time PHQ-9 Depression Total Score: 7 05/08/20 24 10:19 AM EST documented as of this encounter Care Teams Show Host Relationship Specialty Start Date End Date Caroline Dumas MD [address] [place] [id number] PCP - General Internal Medicine 12/01/22 documented as of this encounter
== END 2024-08-29 19:01 | disposition home or self-care (01) ==
LOC: HO.HHCLNP 19:00
PROVIDERS: Visit Provider Nurse Practitioner Primary Care
DX: L03.031 Cellulitis of right toe (principal)
CPT/HCPCS: 87070; 87077; 87186; 87205

== ENCOUNTER 2025-01-06 19:35 | Emergency (ER) | payer SELFPAY ==
[2025-01-06 19:53] VITALS: BP 124/89; PULSE 80; RESP 18; TEMP 36.7; O2SAT 99; BMI 32.3
--- NOTE | 2025-01-06 19:58 | ED.SKABFB ---
HPI - Skin/Abscess/Foreign Bdy General Chief complaint: Extremity Injury, Lower Stated complaint: right great toe pain Related Data Previous Rx's ?Medication ?Instructions ?Recorded naproxen 500 mg tablet 500 mg PO BID PRN pain #20 tabs 10/19/22 Allergies Allergy/AdvReac Type Severity Reaction Status Date / Time No Known Allergies Allergy Verified 01/06/25 19:56 [facility] Social History Social History (System 05/07/23 @ 11:11 by Monica Bowers) Advance Directives: No Advance Directives Information Provided: No Physical Exam Vital Signs: Vital Signs: Last Vital Signs Temp 98.0 F 01/06/25 19:53 Pulse 80 01/06/25 19:53 Resp 18 01/06/25 19:53 BP 124/89 01/06/25 19:53 Pulse Ox 99 01/06/25 19:53 O2 Del Method Room Air 01/06/25 19:53 BMI result Body Mass Index 32.3 Course Course Course Narrative: Zora Hartley GROOMING ASSISTANT 01/06 1957 THis is a rapid medical exam. Defer additional HPI, ROS and PE to primary provider. Is a 44-year-old female with a history of ingrown toenails who presents the ER with right great toe swelling and pain. On exam patient appears to have ingrown toenail. She will likely need excision of the toenail. VSS Discharge Plan Discharge Clinical Impression: Ingrowing toenail of right foot Patient Disposition: Left W/O Completing Treatment Prescriptions: No Action naproxen 500 mg tablet 500 mg PO BID PRN (Reason: pain) Qty: 20 0RF Discharge Date/Time: 01/07/25 00:56
== END 2025-01-07 00:56 | disposition left against medical advice (07) ==
PROVIDERS: Emergency Provider Emergency Medicine
DX: L60.0 Ingrowing nail (principal); M79.674 Pain in right toe(s)
CPT/HCPCS: 99281

== ENCOUNTER 2025-01-08 16:36 | Emergency (ER) | payer OTHER, SELFPAY ==
[2025-01-08 17:11] VITALS: BP 141/70; PULSE 83; RESP 20; TEMP 36.8; O2SAT 98; BMI 28.4
--- NOTE | 2025-01-08 17:12 | ED_ITS ---
HPI - General Adult General Chief complaint: Wound/Laceration Stated complaint: left toe pain Time Seen by Provider: 01/08/25 21:09 History of Present Illness ED Provider: Nelia RABAGO narrative: The patient is a 44-year-old woman who says she has been having problems with an ingrown toenail on her right great toe for over a month. She says that she saw her primary care doctor several weeks ago and was prescribed antibiotics. There was a plan to refer the patient to Podiatry. However the patient has not yet seen a strategic accounts manager. The pain has been getting worse and she came to the emergency room. No fever, sweats, chills. She reports some yellow-green dis charge. Related Data Previous Rx's ?Medication ?Instructions ?Recorded naproxen 500 mg tablet 500 mg PO BID PRN pain #20 t abs 10/19/22 Allergies Allergy/AdvReac Type Severity Reaction Status Date / Time No Known Allergies Allergy Verified 01/08/25 17:11 Review of Systems Review of Systems: Yes all other systems are reviewed and are negative [facility] Social History Social History (System 05/07/23 @ 11:11 by Monica Bowers) Advance Directives: No Advance Directives Information Provided: No Physical Exam ED Vital Signs: Vital Signs - 24 hr 01/08/25 17:11 01/08/25 21:20 01/08/25 22:43 Temperature 98.3 F 98.1 F 98.1 F Pulse Rate 83 75 75 Respiratory Rate 20 17 17 Blood Pressure 141/70 H 129/84 129/84 Pulse Oximetry 98 98 98 Oxygen Delivery Method Room Air Room Air Room Air BMI result Body Mass Index 28.4 Const General: cooperative, healthy appearing, comfortable and no acute distress Orientation/consciousness: patient oriented x3 [facility] Other: The face is symmetrical. Mucous membranes moist. Eyes Other: Pupils are round equal, conjunctivae are clear, extraocular movements intact Neck Neck: Yes normal visual inspection and Yes full ROM Resp Effort & Inspection: normal respiratory effort Auscultation: clear to auscultation bilaterally Cardio Rate: regular rate Rhythm: regular rhythm Heart sounds: S1 normal heart sound present and S2 normal heart sound present Skin Other: There is erythema and soft tissue swelling to the medial aspect of the paronychial skin of the right great toe. The patient is very tender in his area. Neuro General: patient oriented x3, gait normal, tone normal, moves all extremities, no focal motor deficits and CN's II-XI intact bilaterally Extrem Other: The patient has swelling and erythema to the paronychial skin on the medial aspect of the right great toe. The toenail seems to be ingrown on this side. There was no lymphangitic streaking of the erythema. The erythema is confined to the medial aspect of the distal toe at the paronychial skin. Course Course Course Narrative: This is a Rapid Medical Examination (RME) performed by Gladys Stanton PA-C in triage. Full HPI, ROS, assessment and treatment plan per primary provider in the Main ED. Hx: 44 yo F here for eval of painful ingrown toe nail to right great toe. draining red/yellow discharge. Plan: ingrown toenail removal ?I&D Medications Administered Discontinued Medications Generic Name Dose Route Start Last Admin Trade Name Jerryq PRN Reason Stop Dose Admin Bacitracin 1 appl 01/08/25 22:05 01/08/25 22:51 Bacitracin Oint 0.9 Gm Packet TOPICAL 01/08/25 22:06 1 appl ONCE ONE Administration Protocol Lidocaine HCl 10 ml 01/08/25 21:18 01/08/25 21:21 Lidocaine Hcl 1 % Mpf 5 Ml Vial INFILTRATI 01/08/25 21:19 10 ml ONCE ONE Administration Procedures Procedure Narrative Procedure Narrative: Procedure: Partial nail removal to relieve an ingrown toenail consent: Verbal consent from the patient was given prior to start of the procedure location: Right great toe anesthesia: 1% plain lidocaine using a 30 gauge needle injected at the base of the toe as a digital block, total volume of lidocaine 10 mL preparation: The toe was prepped with Betadine procedure details: After anesthesia was ultimately achieved using a digital block I used a scissors to undermine the medial aspect of the right great toenail from the nail bed. I carried this undermining procedure down to the base of the toenail in the region of the nail bed matrix. I then used scissors to cut the nail longitudinally and remove the medial portion of the nail, thereby relieving the ingrown toenail against the paronychial skin on the medial side of the toe. the longitudinal cut was taken down to the proximal end of the nail in the region of the nail bed matrix. Complications: None, the patient tolerated the procedure well. Bacitracin and a dressing were applied subsequent to the procedure. The patient was given a postop shoe. Medical Decision Making Medical Decision Making MDM Narrative: The patient has an obvious ingrown toenail on the medial aspect of the right great toe. Using a [place] seaman officer I explained that I recommended a partial removal of the toenail and that this would be done using a digital block to the toe. The patient understood and consented to the procedure. I then prepped the skin of the toe with Betadine. I used 1% lidocaine and a 30 gauge needle to apply a digital block to the toe, injecting lidocaine primarily at the base of the toe, mostly on the medial side. It took some time for the digital block take affect and I used a total of 10 mL of 1% lidocaine administered over several injections before the toe was sufficiently anesthetized to proceed. I then used a scissors to undermine the medial aspect of the toenail from the nail bed. I did this all the way to the base of the nail. I then used scissors cut away the medial portion of the toenail down to the nail matrix level. I believe this succeeded in relieving the irritation to the skin by the ingrown toenail. Bacitracin and a dressing were applied. The patient was given a postop shoe. The patient should follow up with Podiatry. Discharge Plan Discharge Clinical Impression: Ingrown right big toenail Patient Disposition: Home, Self-Care Instructions: Ingrown Nail (ED), Partial Nail Avulsion for Ingrown Nail (DC) Additional Instructions: I removed the portion of the toenail that seemed to be growing into the side of your toe. Please keep the wound clean and dry and covered with a Band-Aid. I would recommend that you buy an [id number] antibiotic ointment like bacitracin or Neosporin and apply the ointment to the toe twice a day for the next several days. Please use the open toed shoe provided. Try and rest and stay off the foot. Keep the foot elevated. You will need to be seen by a strategic accounts manager soon. Please try the contact information provided here tonight. Alternatively you can try the podiatry office you has been previously referred to. Otherwise follow up with your regular doctor's office. If significantly worse return to the emergency room. Prescriptions: No Action naproxen 500 mg tablet 500 mg PO BID PRN (Reason: pain) Qty: 20 0RF Referrals: [facility] [Provider Group] [facility] [Provider Group, Podiatry] Interventions: ED Discharge Assessment Last Done: 01/08/25 22:43 Discharge Date/Time: 01/08/25 22:44 Print Language: [place]
[2025-01-08 21:20] VITALS: BP 129/84; PULSE 75; RESP 17; TEMP 36.7; O2SAT 98
[2025-01-08] MEDS: Lidocaine HCl 1 % MPF 5 ML VIAL 10 ML INFILTRATI (21:21)
[2025-01-08 22:43] VITALS: BP 129/84; PULSE 75; RESP 17; TEMP 36.7; O2SAT 98
== END 2025-01-08 22:44 | disposition home or self-care (01) ==
PROVIDERS: Emergency Provider Emergency Medicine
DX: L60.0 Ingrowing nail (principal)
CPT/HCPCS: 11750; 99282; 99284; J2003